=== PATIENT | female | born 1950 | race African-American/Black ===

== ENCOUNTER 2018-03-30 17:21 | Emergency (ER) | payer MEDICARE ==
[~2018-03-30] VITALS: Ht 160 cm; Wt 99.8 kg
[~2018-03-30 17:21] MED LIST: ACET-704 PO
[2018-03-30 17:30] VITALS: BP 158/76
[2018-03-30] MEDS ORDERED: oxyCODONE/APAP 5/325 1 TAB TABLET PO ONE (17:45)
--- NOTE | 2018-03-30 18:29 | PHYS DOC ---
Past Medical History Past Medical History: Arthritis, Diabetes-Type II, Hypertension, Hypothyroid Additional Past Medical Histor: chronic back pain and arthritis Past Surgical History: , Other Additional Past Surgical Histo: EAR Alcohol Use: None Drug Use: None Adult General Chief Complaint Chief Complaint: SHOULDER INJURY [facility] HPI Patient is a 67 year old female presents the ED complaining of shoulder injury times one day ago. Patient states she was trying to get healthy and she started lifting weights and injured her left shoulder. Describes the pain as sharp. Rates the pain as 6 out of 10. States she is not taking any medication at home for the pain. Denies chest pain, shortness of breath, fever, back pain, abdominal pain, nausea/vomiting, dizziness, weakness, or headache. Review of Systems Review of Systems Constitutional: Denies fever or chills [] Eyes: Denies change in visual acuity, redness, or eye pain [] HENT: Denies nasal congestion or sore throat [] Respiratory: Denies cough or shortness of breath [] Cardiovascular: No additional information not addressed in HPI [] GI: Denies abdominal pain, nausea, vomiting, bloody stools or diarrhea [] : Denies dysuria or hematuria [] Musculoskeletal: Complains of left shoulder pain. Denies back pain.[] Integument: Denies rash or skin lesions [] Neurologic: Denies headache, focal weakness or sensory changes [] All other systems were reviewed and found to be within normal limits, except as documented in this note. Current Medications Current Medications Current Medications Medications (Trade) Dose Ordered Sig/Gisela Start Time Stop Time Status Last Admin Dose Admin Oxycodone/ Acetaminophen (Percocet 5/325) 1 tab 1X ONCE 03/30/18 17:45 03/30/18 17:46 DC 03/30/18 17:56 1 TAB Allergies Allergies Allergies Coded Allergies Type Severity Reaction Last Updated Verified No Known Drug Allergies 09/21/13 No Physical Exam Physical Exam Constitutional: Well developed, well nourished, no acute distress, non-toxic appearance. [] HENT: Normocephalic, atraumatic Neck: Normal range of motion, no tenderness, supple, no stridor. [] Cardiovascular:Heart rate regular rhythm, no murmur [] Lungs & Thorax: Bilateral breath sounds clear to auscultation [] Abdomen: Bowel sounds normal, soft, no tenderness, no masses, no pulsatile masses. [] Skin: Warm, dry, no erythema, no rash. [] Back: No tenderness, no CVA tenderness. [] Extremities: mild left anterior shoulder tenderness, no cyanosis, no clubbing, ROM intact, no edema. [] Neurologic: Alert and oriented X 3, normal motor function, normal sensory function, no focal deficits noted. [] Psychologic: Affect normal, judgement normal, mood normal. [] Current Patient Data Vital Signs Vital Signs Date Time Temp Pulse Resp B/P (MAP) Pulse Ox O2 Delivery O2 Flow Rate FiO2 03/30/18 17:56 16 98 Room Air 03/30/18 17:30 98.2 92 158/76 (103) 98.2 EKG EKG [] Radiology/Procedures Radiology/Procedures [] Course & Med Decision Making Course & Med Decision Making Pertinent Labs and Imaging studies reviewed. (See chart for details) []Discussed imaging findings with patient. Patient's pain improved. Discussed symptomatic treatment outpatient. Patient requesting hydrocodone for pain. States she has taken before without complications. Discussed follow-up with orthopedics if pain persists. Provided contact information/education. Discussed reasons to return to the ED. Patient understands and agrees with plan. Dragon Disclaimer Dragon Disclaimer This electronic medical record was generated, in whole or in part, using a voice recognition dictation system. Departure Departure Impression: Primary Impression: Shoulder injury Additional Impression: Shoulder strain Disposition: 01 HOME, SELF-CARE Condition: IMPROVED Referrals: KRATHIK COATES MD (PCP) BREN HAQ MD Patient Instructions: Muscle Strain, Shoulder Sprain Scripts Hydrocodone/Apap 5-325 (NORCO 5-325 TABLET) 1 Each Tablet 1 TAB PO BID for 3 Days, #6 TAB Prov: LAKSHMI ELLIOTT 03/30/18 Problem Qualifiers LAKSHMI ELLIOTT Mar 30, 2018 18:29
[2018-03-30] MEDS ORDERED: HYDR-971 PO (18:34)
--- NOTE | 2018-03-30 21:17 | RAD ---
Three-view left shoulder radiographs March 30, 2018 CLINICAL HISTORY: Left shoulder pain. AP internal and external rotation and transscapular digital radiographs of the left shoulder were obtained. Mild to moderate degenerative changes are seen involving the left glenohumeral joint. Moderate degenerative changes are seen involving the left AC joint. No fracture or dislocation of the left shoulder is seen. IMPRESSION: Degenerative changes are seen involving the left shoulder as outlined above. No acute osseous abnormality is seen. Electronically signed by: Rebel Leyva MD (03/30/2018 9:13 PM) [facility]
== END 2018-03-30 18:38 | disposition home or self-care (01) ==
LOC: ER 17:21
DX: S46.812A Strain of other muscles, fascia and tendons at shoulder and upper arm level, left arm, initial encounter (principal); I10 Essential (primary) hypertension; E03.9 Hypothyroidism, unspecified; E11.9 Type 2 diabetes mellitus without complications; G89.29 Other chronic pain; X50.0XXA Overexertion from strenuous movement or load, initial encounter; Y93.89 Activity, other specified; Y99.8 Other external cause status; Y92.89 Other specified places as the place of occurrence of the external cause
CPT/HCPCS: 73030; 99284

== ENCOUNTER 2018-06-17 15:07 | Emergency (ER) | payer MEDICARE, MEDICAID ==
[~2018-06-17] VITALS: Ht 160 cm; Wt 99.8 kg
[~2018-06-17 15:07] MED LIST changes: +HYDR-971 PO
[2018-06-17] MEDS ORDERED: IBUPROFEN 400 MG TABLET. PO ONE (16:15)
--- NOTE | 2018-06-17 16:24 | RAD ---
Left knee, 3 views, 06/17/2018: HISTORY: Knee pain after a fall There are minimal degenerative changes medially at the knee joint and at the patellofemoral articulation. No fracture or dislocation is identified. No joint effusion is evident. IMPRESSION: No acute bony abnormality is detected. Electronically signed by: Tung Fabian MD (06/17/2018 4:21 PM) [facility]
[2018-06-17] MEDS ORDERED: HYDR-2758 PO (16:43)
--- NOTE | 2018-06-17 16:43 | PHYS DOC ---
Past Medical History Past Medical History: Arthritis, Diabetes-Type II, Hypertension, Hypothyroid Additional Past Medical Histor: chronic back pain and arthritis Past Surgical History: , Other Additional Past Surgical Histo: EAR Alcohol Use: None Drug Use: None Adult General Chief Complaint Chief Complaint: OTHER COMPLAINTS HPI HPI Patient is a 67 year old AA female who presents to the ER with complaints of sores on the insides of both of her cheeks for the last 2 days. She denies any known injury, dental pain, or fever. In addition pt reports left knee pain after a fall yesterday. Pt reports a history of arthritis and states that she had a soft fall onto her L knee yesterday. She denies any numbness or tingling of LLE, reports anterior L knee pain that increases with ROM. Pt requests that some hydrocodone be prescribed to her. Review of Systems Review of Systems Constitutional: Denies fever or chills [] Eyes: Denies change in visual acuity, redness, or eye pain [] HENT: Denies nasal congestion or sore throat, see HPI [] Respiratory: Denies cough or shortness of breath [] Musculoskeletal: Denies back pain reports L knee pain Integument: Denies rash or skin lesions [] Neurologic: Denies headache, focal weakness or sensory changes [] All other systems were reviewed and found to be within normal limits, except as documented in this note. Current Medications Current Medications Current Medications Medications (Trade) Dose Ordered Sig/Gisela Start Time Stop Time Status Last Admin Dose Admin Ibuprofen (Motrin) 400 mg 1X ONCE 06/17/18 16:15 06/17/18 16:16 DC 06/17/18 16:36 400 MG Allergies Allergies Allergies Coded Allergies Type Severity Reaction Last Updated Verified No Known Drug Allergies 09/21/13 No Physical Exam Physical Exam Constitutional: Well developed, well nourished, no acute distress, non-toxic appearance. [] HENT: Normocephalic, atraumatic, bilateral external ears normal, oropharynx moist, no oral exudates, nose normal. [] Eyes: PERRLA, EOMI, conjunctiva normal, no discharge. [] Neck: Normal range of motion, no tenderness, supple, no stridor. [] Cardiovascular:Heart rate regular rhythm, no murmur [] Lungs & Thorax: Bilateral breath sounds clear to auscultation [] Abdomen: Bowel sounds normal, soft, no tenderness, no masses, no pulsatile masses. [] Skin: Warm, dry, no erythema, no rash. [] Back: No tenderness, no CVA tenderness. [] Extremities: No tenderness, no cyanosis, no clubbing, ROM intact, no edema. [] Neurologic: Alert and oriented X 3, normal motor function, normal sensory function, no focal deficits noted. [] Psychologic: Affect normal, judgement normal, mood normal. [] Current Patient Data Vital Signs Vital Signs Date Time Temp Pulse Resp B/P (MAP) Pulse Ox O2 Delivery O2 Flow Rate FiO2 06/17/18 16:52 81 20 164/74 (104) 94 Room Air 06/17/18 15:26 98.1 98.1 EKG EKG [] Radiology/Procedures Radiology/Procedures PROCEDURE: KNEE LEFT 3V Left knee, 3 views, 06/17/2018: HISTORY: Knee pain after a fall There are minimal degenerative changes medially at the knee joint and at the patellofemoral articulation. No fracture or dislocation is identified. No joint effusion is evident. IMPRESSION: No acute bony abnormality is detected.[] Course & Med Decision Making Course & Med Decision Making Pertinent Labs and Imaging studies reviewed. (See chart for details) Dx: apthous ulcers and anterior left knee pain Prescription for hydrocodone 5/325 #4 written. Recommend rest, elevation, and application of ice to sore areas as needed. Avoid spicy, acidy, and carbonated foods/drinks as they will aggravate your ulcers. Return to the ER if symptoms worsen. Follow up with your pcp for your knee pain and your dentist if your ulcers persist. Return to ER if symptoms worsen. Patient verbalized an understanding of home care, medications, follow-up, and return to ED instructions and was in agreement with the plan of care. [] Dragon Disclaimer Dragon Disclaimer This electronic medical record was generated, in whole or in part, using a voice recognition dictation system. Departure Departure Impression: Primary Impression: Aphthous ulcer of mouth Additional Impression: Left anterior knee pain Disposition: 01 HOME, SELF-CARE Condition: STABLE Referrals: KARTHIK COATES MD (PCP) Patient Instructions: Knee Pain, [id number], Oral Ulcers Additional Instructions: Fill prescription and use as directed for severe pain. Recommend rest, elevation , and application of ice to sore areas as needed. Avoid spicy, acidy, and carbonated foods/drinks as they will aggravate your ulcers. Return to the ER if symptoms worsen. Follow up with your pcp for your knee pain and your dentist if your ulcers persist. Scripts Hydrocodone Bit/Acetaminophen (HYDROCODONE-APAP 5-325 ) 1 Each Tablet 1 TAB PO PRN Q6HRS PRN for PAIN for 1 Day, #4 TAB 0 Refills Prov: BEN RODRIGUEZ APRN 06/17/18 Problem Qualifiers BEN RODRIGUEZ APRN Jun 17, 2018 16:43
[2018-06-17 16:52] VITALS: BP 164/74
== END 2018-06-17 16:52 | disposition home or self-care (01) ==
LOC: ER 15:07
DX: K12.0 Recurrent oral aphthae (principal); M25.562 Pain in left knee; G89.11 Acute pain due to trauma; E03.9 Hypothyroidism, unspecified; I10 Essential (primary) hypertension; E11.9 Type 2 diabetes mellitus without complications; G89.29 Other chronic pain; W18.30XA Fall on same level, unspecified, initial encounter; Y93.89 Activity, other specified; Y92.89 Other specified places as the place of occurrence of the external cause; Y99.8 Other external cause status
CPT/HCPCS: 73562; 99284

== ENCOUNTER 2019-08-24 09:17 | Emergency (ER) | payer MEDICARE, MEDICAID ==
[~2019-08-24] VITALS: Ht 160 cm; Wt 99.8 kg
[~2019-08-24 09:17] MED LIST changes: +HYDR-2761 PO; +HYDR-3164 PO; -HYDR-971 PO
[2019-08-24] MEDS ORDERED: ORPHENADRINE CITRATE 60 MG/2 ML VIAL. IM ONE (10:00)
[2019-08-24] MEDS ORDERED: KETOROLAC 60 MG/2 ML VIAL. IM ONE (10:00)
[2019-08-24] MEDS ORDERED: cloNIDine HCL 0.1 MG TABLET PO ONE (10:00)
[2019-08-24 10:06] LABS: BILIRUBIN,URINE NEGATIVE (NEG); CLARITY,URINE CLEAR; COLOR,URINE YELLOW; NITRITE,URINE NEGATIVE (NEG); PH,URINE 7.5; PROTEIN,URINE NEGATIVE (NEG-TRACE)
[2019-08-24 10:27] LABS: BACTERIA,URINE 0 /HPF (0-FEW); RBC,URINE 0 /HPF (0-2); SQUAMOUS EPITHELIAL CELL,UR FEW /LPF; WBC,URINE 0 /HPF (0-4)
[2019-08-24] MEDS ORDERED: DICL50TA4 PO (10:38)
[2019-08-24] MEDS ORDERED: ORPH100T PO (10:38)
[2019-08-24] MEDS ORDERED: SULF1TAB24 PO (10:38)
--- NOTE | 2019-08-24 10:38 | PHYS DOC ---
Past Medical History Past Medical History: Arthritis, Diabetes-Type II, Hypertension, Hypothyroid Additional Past Medical Histor: chronic back pain and arthritis Past Surgical History: , Other Additional Past Surgical Histo: EAR Alcohol Use: None Drug Use: None Adult General Chief Complaint Chief Complaint: BACK PAIN - NO INJURY HPI HPI Patient is a 68-year-old female who presents with complaint of all over body pain, stating that her problems always hurt. She rates that pain at an 8 out of 10. She states that she usually just takes Tylenol or ibuprofen. She also is concerned about a possible infection in her left great toe. She denies any fever. She denies any chest pain or shortness of breath.[] Review of Systems Review of Systems Constitutional: Denies fever or chills [] Respiratory: Denies cough or shortness of breath [] Cardiovascular: No additional information not addressed in HPI [] GI: Denies abdominal pain, nausea, vomiting, or diarrhea [] Musculoskeletal: Complains of diffuse body aches and back pain [] Integument: Denies rash or skin lesions [] Neurologic: Denies headache, focal weakness or sensory changes [] All other systems were reviewed and found to be within normal limits, except as documented in this note. Current Medications Current Medications Current Medications Medications (Trade) Dose Ordered Sig/Gisela Start Time Stop Time Status Last Admin Dose Admin Clonidine HCl (Catapres) 0.2 mg 1X ONCE 08/24/19 10:00 08/24/19 10:03 DC 08/24/19 10:55 0.2 MG Ketorolac Tromethamine (Toradol Im) 30 mg 1X ONCE 08/24/19 10:00 08/24/19 10:03 DC 08/24/19 10:56 30 MG Orphenadrine Citrate (Norflex) 60 mg 1X ONCE 08/24/19 10:00 08/24/19 10:03 DC 08/24/19 10:55 60 MG Allergies Allergies Allergies Coded Allergies Type Severity Reaction Last Updated Verified No Known Drug Allergies 09/21/13 No Physical Exam Physical Exam Constitutional: Well developed, well nourished, no acute distress, non-toxic appearance. [] HENT: Normocephalic, atraumatic, bilateral external ears normal, oropharynx moist, no oral exudates, nose normal. [] Eyes: PERRLA, EOMI, conjunctiva normal, no discharge. [] Neck: Normal range of motion, no tenderness, supple, no stridor. [] Cardiovascular: Regular rate and rhythm[] Lungs & Thorax: Bilateral breath sounds clear to auscultation [] Abdomen: Bowel sounds normal, soft, no tenderness. [] Skin: Warm, dry, no erythema, no rash. [] Extremities: No cyanosis, no clubbing, ROM intact. [] Neurologic: Alert and oriented X 3, no focal deficits noted. [] Current Patient Data Vital Signs Vital Signs Date Time Temp Pulse Resp B/P (MAP) Pulse Ox O2 Delivery O2 Flow Rate FiO2 08/24/19 10:55 75 176/88 08/24/19 09:25 98.6 18 97 Room Air 98.6 Lab Values Laboratory Tests Test 08/24/19 09:30 Urine Collection Type Unknown Urine Color Yellow Urine Clarity Clear Urine pH 7.5 Urine Specific [place] 1.015 Urine Protein Negative mg/dL (NEG-TRACE) Urine Glucose (UA) >=1000 mg/dL (NEG) Urine Ketones (Stick) Negative mg/dL (NEG) Urine Blood Negative (NEG) Urine Nitrite Negative (NEG) Urine Bilirubin Negative (NEG) Urine Urobilinogen Dipstick 1.0 mg/dL (0.2 mg/dL) Urine Leukocyte Esterase Negative (NEG) Urine RBC 0 /HPF (0-2) Urine WBC 0 /HPF (0-4) Urine Squamous Epithelial Cells Few /LPF Urine Bacteria 0 /HPF (0-FEW) EKG EKG [] Radiology/Procedures Radiology/Procedures [] Course & Med Decision Making Course & Med Decision Making Pertinent Labs and Imaging studies reviewed. (See chart for details) [] Dragon Disclaimer Dragon Disclaimer This electronic medical record was generated, in whole or in part, using a voice recognition dictation system. Departure Departure Impression: Primary Impression: Chronic pain Additional Impressions: Paronychia of toe of left foot due to ingrown toenail Hypertension Disposition: 01 HOME, SELF-CARE Condition: STABLE Referrals: UNKNOWN PCP NAME (PCP) Patient Instructions: Chronic Pain, Hypertension, Paronychia Scripts Orphenadrine Citrate (ORPHENADRINE CITRATE) 100 Mg Tablet.er 1 TAB PO BID PRN for MUSCLE SPASMS, #14 TAB Prov: ML PÉREZ Jr. DO 1/2/20 Diclofenac Sodium (DICLOFENAC SODIUM) 50 Mg Tablet. 1 TAB PO BID PRN for PAIN, #20 TAB Prov: ML PÉREZ Jr. DO 08/24/19 Sulfamethoxazole/Trimethoprim (BACTRIM DS TABLET) 1 Each Tablet 1 TAB PO BID for 10 Days, #20 TAB 0 Refills Prov: ML PÉREZ Jr. DO 08/24/19 Problem Qualifiers Primary Impression: Chronic pain Chronic pain type: other chronic pain Qualified Codes: G89.29 - Other chronic pain Additional Impressions: Hypertension Hypertension type: essential hypertension Qualified Codes: I10 - Essential (primary) hypertension ML PÉREZ Jr. DO Aug 24, 2019 10:38
[2019-08-24 10:55] VITALS: BP 176/88
--- NOTE | 2019-08-24 11:35 | EKG ---
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
== END 2019-08-24 11:15 | disposition home or self-care (01) ==
LOC: ER 09:17
DX: G89.29 Other chronic pain (principal); I10 Essential (primary) hypertension; L60.0 Ingrowing nail; L03.032 Cellulitis of left toe; M54.9 Dorsalgia, unspecified; E11.9 Type 2 diabetes mellitus without complications; E03.9 Hypothyroidism, unspecified
CPT/HCPCS: 81001; 93005; 96372; 99285; J1885; J2360

== ENCOUNTER 2020-04-12 16:00 | Inpatient (IN) | payer MEDICARE, OTHER ==
[~2020-04-12] VITALS: Ht 162.6 cm; Wt 98.2 kg
[~2020-04-12 16:00] MED LIST changes: +DICL50TA4 PO; +ORPH100T PO; +SULF1TAB24 PO
--- NOTE | 2020-04-12 16:58 | PHYS DOC ---
Past Medical History Past Medical History: Arthritis, Diabetes-Type II, Hypertension, Hypothyroid Additional Past Medical Histor: chronic back pain and arthritis Past Surgical History: , Other Additional Past Surgical Histo: EAR Smoking Status: Never Smoker Alcohol Use: None Drug Use: None General Adult EDM: Chief Complaint: FEVER HPI: HPI: Patient is a 69 year old female who presents with a chief complaint of fever chills myalgias and cough for a week. Patient is also had some intermittent throbbing headache. Patient says she not having headache at this time. Patient has some mild shortness of breath as well. Patient denies any vomiting or diarrhea or abdominal pain. Symptoms are better with Tylenol and worse with activity. Patient complains of generalized weakness Review of Systems: Review of Systems: Constitutional: Complains of fever and chills Eyes: Denies change in visual acuity. [] HENT: Complains of congestion and sore throat Respiratory: Complains of cough and shortness of breath Cardiovascular: Denies chest pain or edema. [] GI: Denies abdominal pain, nausea, vomiting, bloody stools or diarrhea. [] : Denies dysuria. [] Musculoskeletal: Complains of myalgias Integument: Denies rash. [] Neurologic: Complains of intermittent headache but no, focal weakness or sensory changes. [] Complains of generalized weakness Endocrine: Denies polyuria or polydipsia. [] Lymphatic: Denies swollen glands. [] Psychiatric: Denies depression or anxiety. [] Heart Score: Risk Factors: Risk Factors: DM, Current or recent (<one month) smoker, HTN, HLP, family history of CAD, obesity. Risk Scores: Score 0 - 3: 2.5% MACE over next 6 weeks - Discharge Home Score 4 - 6: 20.3% MACE over next 6 weeks - Admit for Clinical Observation Score 7 - 10: 72.7% MACE over next 6 weeks - Early Invasive Strategies Current Medications: Current Medications Medications (Trade) Dose Ordered Sig/Gisela Start Time Stop Time Status Last Admin Dose Admin Acetaminophen (Tylenol) 1,000 mg 1X ONCE 04/12/20 17:00 04/12/20 17:01 Sodium Chloride 1,000 ml @ 1,000 mls/hr 1X ONCE 04/12/20 17:00 04/12/20 17:59 Allergies: Allergies: Allergies Coded Allergies Type Severity Reaction Last Updated Verified No Known Drug Allergies 09/21/13 No Physical Exam: PE: Constitutional: Well developed, well nourished, no acute distress, non-toxic appearance. [] HENT: Normocephalic, atraumatic, bilateral external ears normal, no trismus nose normal. [] Eyes: PERRLA, EOMI, conjunctiva normal, no discharge. [] Neck: Normal range of motion, no tenderness, supple, no stridor. [] Cardiovascular:Heart rate regular rhythm, peripheral pulses intact, cap refill brisk Lungs & Thorax: Diminished breath sounds, no respiratory distress Abdomen: soft, no tenderness, no masses, no pulsatile masses. [] Skin: Warm, dry, no erythema, no rash. [] Back: No tenderness, no CVA tenderness. [] Extremities: No tenderness, no cyanosis, no clubbing, ROM intact, no edema. [] Neurologic: Alert and oriented X 3, normal motor function, normal sensory function, no focal deficits noted. [] Psychologic: Affect normal, judgement normal, mood normal. [] Current Patient Data: Labs: Laboratory Tests Test 04/12/20 16:50 White Blood Count 6.5 x10^3/uL Red Blood Count 4.89 x10^6/uL Hemoglobin 15.1 g/dL Hematocrit 43.9 % Mean Corpuscular Volume 90 fL Mean Corpuscular Hemoglobin 31 pg Mean Corpuscular Hemoglobin Concent 34 g/dL Red Cell Distribution Width 12.8 % Platelet Count 221 x10^3/uL Neutrophils (%) (Auto) 66 % Lymphocytes (%) (Auto) 23 % Monocytes (%) (Auto) 9 % Eosinophils (%) (Auto) 0 % Basophils (%) (Auto) 2 % Neutrophils # (Auto) 4.3 x10^3/uL Lymphocytes # (Auto) 1.5 x10^3/uL Monocytes # (Auto) 0.6 x10^3/uL Eosinophils # (Auto) 0.0 x10^3/uL Basophils # (Auto) 0.1 x10^3/uL Prothrombin Time 13.3 SEC Prothromb Time International Ratio 1.1 Activated Partial Thromboplast Time 26 SEC Fibrinogen 631 mg/dL D-Dimer (Janell) 0.91 ug/mlFEU Sodium Level 133 mmol/L Potassium Level 3.3 mmol/L Chloride Level 94 mmol/L Carbon Dioxide Level 31 mmol/L Anion Gap 8 Blood Urea Nitrogen 17 mg/dL Creatinine 1.3 mg/dL Estimated GFR (Cockcroft-Gault) 48.9 BUN/Creatinine Ratio 13 Glucose Level 343 mg/dL Lactic Acid Level 1.7 mmol/L Calcium Level 8.9 mg/dL Total Bilirubin Pending Aspartate Amino Transf (AST/SGOT) Pending Alanine Aminotransferase (ALT/SGPT) Pending Alkaline Phosphatase Pending Creatine Kinase Pending Troponin I Quantitative < 0.017 ng/mL Total Protein Pending Albumin Pending Albumin/Globulin Ratio Pending Lipase Pending Current Medications Medications (Trade) Dose Ordered Sig/Gisela Route PRN Reason Start Time Stop Time Status Last Admin Dose Admin Sodium Chloride 1,000 ml @ 1,000 mls/hr 1X ONCE IV 04/12/20 17:00 04/12/20 17:59 04/12/20 17:28 Acetaminophen (Tylenol) 1,000 mg 1X ONCE PO 04/12/20 17:00 04/12/20 17:01 DC 04/12/20 17:29 Vital Signs: Vital Signs Date Time Temp Pulse Resp B/P (MAP) Pulse Ox O2 Delivery O2 Flow Rate FiO2 04/12/20 16:40 101.6 87 23 169/81 (110) 91 Room Air 101.6 EKG: EKG: [] EKG interpreted by me normal sinus rhythm with rate of 88 normal axis normal intervals nonspecific ST changes Radiology/Procedures: Radiology/Procedures: [] Course & Med Decision Making: Course & Med Decision Making Pertinent Labs and Imaging studies reviewed. (See chart for details) []COVID-19 CRITERIA: The patient was evaluated during the global COVID-19 pandemic, and that diagnosis was suspected/considered upon their initial presentation. Their evaluation, treatment and testing was consistent with current guidelines for patients who present with complaints or symptoms that may be related to COVID-19. 69-year-old female presents with fever myalgias and symptoms concerning with pneumonia and or COVID-19. Patient has elevated d-dimer therefore CT angiogram has been ordered. The remainder of the patient's labs chest x-ray and CT angiogram are pending. Care will be signed over to Dr. Aguilera to follow-up on these and for disposition. Victorino Disclaimer: Victorino Disclaimer: This electronic medical record was generated, in whole or in part, using a voice recognition dictation system. Departure Departure Impression: Primary Impression: Fever Referrals: UNKNOWN PCP NAME (PCP) Justicifation of Admission Dx: Justifications for Admission: Justification of Admission Dx: N/A COVID-19 Assessment: COVID-19 Patient Risks: Age 65 or older: Yes Sign of co-morbidity: Yes Exp to person + for COVID: No Lower respiratory symptoms: Yes Fever: Yes PPE Use: Full PPE with N95 mask or PAPR: Yes VALENTINA ROBERT MD Apr 12, 2020 16:58
[2020-04-12] MEDS ORDERED: ACETAMINOPHEN 500 MG TABLET PO ONE (17:00)
[2020-04-12] MEDS ORDERED: IV NORMAL SALINE 1000ML BAG 1,000 ML IV ONE (17:00)
[2020-04-12 17:05] LABS: BASO # 0.1 x10^3/uL (0.0-0.2); BASO % 2 % (0-3); EOS % 0 % (0-3); HEMATOCRIT 43.9 % (36.0-47.0); HEMOGLOBIN 15.1 g/dL (12.0-15.5); LYMPH # 1.5 x10^3/uL (1.0-4.8); LYMPH % 23 % (24-48); MEAN CORPUSCULAR HEMOGLOBIN 31 pg (25-35); MEAN CORPUSCULAR HGB CONC 34 g/dL (31-37); MEAN CORPUSCULAR VOLUME 90 fL (79-100); MONO # 0.6 x10^3/uL (0.0-1.1); MONO % 9 % (0-9); NEUT # 4.3 x10^3/uL (1.8-7.7); NEUT % 66 % (31-73); PLATELET COUNT 221 x10^3/uL (140-400); RED BLOOD COUNT 4.89 x10^6/uL (3.50-5.40); RED CELL DISTRIBUTION WIDTH 12.8 % (11.5-14.5); WHITE BLOOD COUNT 6.5 x10^3/uL (4.0-11.0)
[2020-04-12 17:16] LABS: PROTHROMBIN TIME PATIENT 13.3 SEC (11.7-14.0)
[2020-04-12 17:20] LABS: D-DIMER 0.91 ug/mlFEU (0.00-0.50)
[2020-04-12 17:28] LABS: CALCIUM 8.9 mg/dL (8.5-10.1); CREATININE 1.3 mg/dL (0.6-1.0); GFR 48.9; POTASSIUM 3.3 mmol/L (3.5-5.1)
[2020-04-12 17:42] LABS: ALBUMIN 2.8 g/dL (3.4-5.0); ALBUMIN/GLOBULIN RATIO 0.5 (1.0-1.7); TOTAL BILIRUBIN 0.5 mg/dL (0.2-1.0); TOTAL PROTEIN 8.4 g/dL (6.4-8.2)
[2020-04-12] MEDS ORDERED: IOHEXOL 350 MG/ML 100 ML VIAL. IV ONE (18:00)
[2020-04-12] MEDS ORDERED: CONTRAST GIVEN. MC PRN (18:15)
--- NOTE | 2020-04-12 18:57 | RAD ---
CTA scan of the Chest with Contrast (Pulmonary Embolism protocol) 04/12/2020 Clinical History: Shortness of breath. Technique: After the intravenous administration of 90 cc of Omnipaque 350, contiguous, 0.625 mm axial sections were obtained through the chest. 2 mm axial and 3D MIP coronal and sagittal reconstructed images were obtained. One or more of the following individualized dose reduction techniques were utilized for this study: 1. Automated exposure control. 2. Adjustment of the mA and/or kV according to patient size. 3. Use of iterative reconstruction technique. Findings: Comparison is made to a portable chest radiograph performed earlier today. No filling defect is seen within the major branches of either pulmonary artery. There is no CT evidence of pulmonary embolism. The heart is mildly enlarged. The thoracic aorta is tortuous but tapers normally.. Scattered atherosclerotic plaque formation is seen involving the thoracic aorta and its branches. A small calcified granuloma is seen involving the right upper lobe. Dependent subsegmental atelectasis is seen involving both lungs. Patchy areas of infiltrate are seen scattered throughout both lungs. No pneumothorax is noted. No pleural effusion is seen. Images through the upper abdomen demonstrate decreased attenuation liver parenchyma consistent with fatty infiltration. Degenerative changes are seen involving the thoracic spine. Impression: There is no CT evidence of pulmonary embolism. Electronically signed by: Rebel Leyva MD (04/12/2020 6:54 PM) [id number]
--- NOTE | 2020-04-12 18:58 | RAD ---
AP portable chest radiograph 04/12/2020 Clinical History: Fever. An AP erect portable digital radiograph of the chest was obtained. No previous studies are available for comparison. The cardiac silhouette is mildly enlarged. The thoracic aorta is tortuous. Patchy areas of atelectasis and/or infiltrate are seen involving both lower lobes, left greater than right. No pneumothorax or pleural effusion is seen. Degenerative changes are seen involving the thoracic spine and both shoulders. IMPRESSION: Patchy bilateral lower lobe atelectasis and/or infiltrate, left greater than right. Electronically signed by: Rebel Leyva MD (04/12/2020 6:55 PM) [id number]
[2020-04-12 19:18] LABS: BILIRUBIN,URINE NEGATIVE (NEG); CLARITY,URINE CLOUDY; COLOR,URINE AMBER; NITRITE,URINE POSITIVE (NEG); PROTEIN,URINE 30 mg/dL (NEG-TRACE)
[2020-04-12 19:22] LABS: BACTERIA,URINE MANY /HPF (0-FEW)
[2020-04-12 19:24] LABS: RBC,URINE 0 /HPF (0-2); SQUAMOUS EPITHELIAL CELL,UR FEW /LPF
[2020-04-12] MEDS ORDERED: ONDANSETRON PF 4 MG/2 ML VIAL. IV PRN (21:30)
[2020-04-12] MEDS ORDERED: ALBUTEROL SULFATE 2.5 MG/3 ML NEBU. NEB PRN (21:30)
[2020-04-12] MEDS ORDERED: ACETAMINOPHEN 325 MG TABLET. PO PRN (21:30)
[2020-04-12] MEDS ORDERED: ACETAMINOPHEN/CODEINE 300/30MG TABLET. PO PRN (21:30)
[2020-04-12] MEDS ORDERED: AZITHROMYCIN 250 MG TABLET. PO ONE (21:30)
[2020-04-12] MEDS ORDERED: HYDROcodone/APAP 5/325MG 1 TAB TABLET PO PRN (21:30)
[2020-04-12] MEDS ORDERED: LORazepam 0.5 MG TABLET PO PRN (21:30)
--- NOTE | 2020-04-12 21:36 | PDOC1 ---
History and Physical Date of Admission Date of Admission 04/12/2020 Identification/Chief Complaint Chief Complaint Fever Source Source: Chart review, Patient History of Present Illness History of Present Illness Patient is a 69-year-old female with past medical history of chronic pain who takes narcotics on a regular basis according to her medication patient reconcil iation, she was in her usual state of health until 2 to 3 days prior to her admission when she started having generalized malaise no cough sputum production no upper respiratory tract infection symptoms per se just a headache which was frontal she denies any recent sick contacts she had not been having fevers until today when she decided to consult the emergency department and was found to have an acute febrile illness with a temperature recorded in the ER at 101 Fahrenheit. The patient denies history of smoking she denies any history of asthma COPD or exposure to fumes or environmental hazards. The patient is now requiring 1 L of oxygen which she does not usually utilize otherwise her oxygen saturation drops into the mid 80s. We have been asked to admit the patient to complete the investigation for coronavirus infection and to treat her acute febrile illness. Patient denies pleurisy no cough or sputum production no nausea vomiting diarrhea no chest pain palpitations were reported no other complaints voiced by the patient except for her shortness of breath Past Medical History Past Medical History No pertinent past medical history Past Surgical History Past Surgical History: No pertinent history Family History Family History: No Significant Social History Smoke: No ALCOHOL: none Drugs: None Current Problem List Problem List Problems Medical Problems: (1) Fever Status: Acute Current Medications Current Medications Current Medications Medications (Trade) Dose Ordered Sig/Gisela Start Time Stop Time Status Last Admin Dose Admin Acetaminophen (Tylenol) 1,000 mg 1X ONCE 04/12/20 17:00 04/12/20 17:01 DC 04/12/20 17:29 1,000 MG Info (CONTRAST GIVEN -- Rx MONITORING) 1 each PRN DAILY PRN 04/12/20 18:15 04/14/20 18:14 Iohexol (Omnipaque 350 Mg/ml) 100 ml 1X ONCE 04/12/20 18:00 04/12/20 18:01 DC 04/12/20 18:24 100 ML Sodium Chloride 1,000 ml @ 1,000 mls/hr 1X ONCE 04/12/20 17:00 04/12/20 17:59 DC 04/12/20 17:28 1,000 MLS/HR Allergies Allergies Allergies Coded Allergies Type Severity Reaction Last Updated Verified No Known Drug Allergies 09/21/13 No ROS Review of System CONSTITUTIONAL: No fever or chills EYES: No recent changes SKIN: No rash or itching CARDIOVASCULAR: No chest pain, syncope, palpitations, or edema RESPIRATORY: No SOB or cough GASTROINTESTINAL: No nausea, vomiting or abdominal pain NEUROLOGICAL: No headaches or weakness ENDOCRINE: No cold or heat intolerance GENITOURINARY: No urgency or frequency of urination MUSCULOSKELETAL: No back pain or joint pain LYMPHATICS: No enlarged lymph nodes PSYCHIATRIC: No anxiety or depression Physical Exam Physical Exam GEN.: No apparent distress. Alert and oriented. HEENT: Head is normocephalic, atraumatic NECK: Supple. LUNGS: Clear to auscultation. HEART: RRR, S1, S2 present. Peripheral pulses intact ABDOMEN: Soft, nontender. Positive bowel sounds. EXTREMITIES: Without any cyanosis. NEUROLOGIC: Normal speech, normal tone PSYCHIATRIC: Normal affect, normal mood. SKIN: No ulcerations Vitals Vitals Vital Signs Date Time Temp Pulse Resp B/P (MAP) Pulse Ox O2 Delivery O2 Flow Rate FiO2 04/12/20 20:46 76 158/92 (114) 100 Nasal Cannula 2.0 04/12/20 16:40 101.6 23 101.6 Labs Labs Laboratory Tests Test 04/12/20 16:50 04/12/20 19:10 White Blood Count 6.5 x10^3/uL (4.0-11.0) Red Blood Count 4.89 x10^6/uL (3.50-5.40) Hemoglobin 15.1 g/dL (12.0-15.5) Hematocrit 43.9 % (36.0-47.0) Mean Corpuscular Volume 90 fL (79-100) Mean Corpuscular Hemoglobin 31 pg (25-35) Mean Corpuscular Hemoglobin Concent 34 g/dL (31-37) Red Cell Distribution Width 12.8 % (11.5-14.5) Platelet Count 221 x10^3/uL (140-400) Neutrophils (%) (Auto) 66 % (31-73) Lymphocytes (%) (Auto) 23 % (24-48) Monocytes (%) (Auto) 9 % (0-9) Eosinophils (%) (Auto) 0 % (0-3) Basophils (%) (Auto) 2 % (0-3) Neutrophils # (Auto) 4.3 x10^3/uL (1.8-7.7) Lymphocytes # (Auto) 1.5 x10^3/uL (1.0-4.8) Monocytes # (Auto) 0.6 x10^3/uL (0.0-1.1) Eosinophils # (Auto) 0.0 x10^3/uL (0.0-0.7) Basophils # (Auto) 0.1 x10^3/uL (0.0-0.2) Prothrombin Time 13.3 SEC (11.7-14.0) Prothromb Time International Ratio 1.1 (0.8-1.1) Activated Partial Thromboplast Time 26 SEC (24-38) Fibrinogen 631 mg/dL (200-440) D-Dimer (Janell) 0.91 ug/mlFEU (0.00-0.50) Sodium Level 133 mmol/L (136-145) Potassium Level 3.3 mmol/L (3.5-5.1) Chloride Level 94 mmol/L (98-107) Carbon Dioxide Level 31 mmol/L (21-32) Anion Gap 8 (6-14) Blood Urea Nitrogen 17 mg/dL (7-20) Creatinine 1.3 mg/dL (0.6-1.0) Estimated GFR (Cockcroft-Gault) 48.9 BUN/Creatinine Ratio 13 (6-20) Glucose Level 343 mg/dL (70-99) Lactic Acid Level 1.7 mmol/L (0.4-2.0) Calcium Level 8.9 mg/dL (8.5-10.1) Total Bilirubin 0.5 mg/dL (0.2-1.0) Aspartate Amino Transf (AST/SGOT) 31 U/L (15-37) Alanine Aminotransferase (ALT/SGPT) 29 U/L (14-59) Alkaline Phosphatase 107 U/L (46-116) Creatine Kinase 78 U/L (26-192) Troponin I Quantitative < 0.017 ng/mL (0.000-0.055) Total Protein 8.4 g/dL (6.4-8.2) Albumin 2.8 g/dL (3.4-5.0) Albumin/Globulin Ratio 0.5 (1.0-1.7) Lipase 178 U/L (73-393) Procalcitonin < 0.10 ng/mL (0.00-0.10) Urine Collection Type Void Urine Color Andressa Urine Clarity Cloudy Urine pH 5.0 (<5.0-8.0) Urine Specific [place] >=1.030 (1.000-1.030) Urine Protein 30 mg/dL (NEG-TRACE) Urine Glucose (UA) 500 mg/dL (NEG) Urine Ketones (Stick) Trace mg/dL (NEG) Urine Blood Negative (NEG) Urine Nitrite Positive (NEG) Urine Bilirubin Negative (NEG) Urine Urobilinogen Dipstick 1.0 mg/dL (0.2 mg/dL) Urine Leukocyte Esterase Moderate (NEG) Urine RBC 0 /HPF (0-2) Urine WBC 11-20 /HPF (0-4) Urine Squamous Epithelial Cells Few /LPF Urine Bacteria Many /HPF (0-FEW) Urine Mucus Marked /LPF Laboratory Tests Test 04/12/20 16:50 04/12/20 19:10 White Blood Count 6.5 x10^3/uL (4.0-11.0) Red Blood Count 4.89 x10^6/uL (3.50-5.40) Hemoglobin 15.1 g/dL (12.0-15.5) Hematocrit 43.9 % (36.0-47.0) Mean Corpuscular Volume 90 fL (79-100) Mean Corpuscular Hemoglobin 31 pg (25-35) Mean Corpuscular Hemoglobin Concent 34 g/dL (31-37) Red Cell Distribution Width 12.8 % (11.5-14.5) Platelet Count 221 x10^3/uL (140-400) Neutrophils (%) (Auto) 66 % (31-73) Lymphocytes (%) (Auto) 23 % (24-48) Monocytes (%) (Auto) 9 % (0-9) Eosinophils (%) (Auto) 0 % (0-3) Basophils (%) (Auto) 2 % (0-3) Neutrophils # (Auto) 4.3 x10^3/uL (1.8-7.7) Lymphocytes # (Auto) 1.5 x10^3/uL (1.0-4.8) Monocytes # (Auto) 0.6 x10^3/uL (0.0-1.1) Eosinophils # (Auto) 0.0 x10^3/uL (0.0-0.7) Basophils # (Auto) 0.1 x10^3/uL (0.0-0.2) Prothrombin Time 13.3 SEC (11.7-14.0) Prothromb Time International Ratio 1.1 (0.8-1.1) Activated Partial Thromboplast Time 26 SEC (24-38) Fibrinogen 631 mg/dL (200-440) D-Dimer (Janell) 0.91 ug/mlFEU (0.00-0.50) Sodium Level 133 mmol/L (136-145) Potassium Level 3.3 mmol/L (3.5-5.1) Chloride Level 94 mmol/L (98-107) Carbon Dioxide Level 31 mmol/L (21-32) Anion Gap 8 (6-14) Blood Urea Nitrogen 17 mg/dL (7-20) Creatinine 1.3 mg/dL (0.6-1.0) Estimated GFR (Cockcroft-Gault) 48.9 BUN/Creatinine Ratio 13 (6-20) Glucose Level 343 mg/dL (70-99) Lactic Acid Level 1.7 mmol/L (0.4-2.0) Calcium Level 8.9 mg/dL (8.5-10.1) Total Bilirubin 0.5 mg/dL (0.2-1.0) Aspartate Amino Transf (AST/SGOT) 31 U/L (15-37) Alanine Aminotransferase (ALT/SGPT) 29 U/L (14-59) Alkaline Phosphatase 107 U/L (46-116) Creatine Kinase 78 U/L (26-192) Troponin I Quantitative < 0.017 ng/mL (0.000-0.055) Total Protein 8.4 g/dL (6.4-8.2) Albumin 2.8 g/dL (3.4-5.0) Albumin/Globulin Ratio 0.5 (1.0-1.7) Lipase 178 U/L (73-393) Procalcitonin < 0.10 ng/mL (0.00-0.10) Urine Collection Type Void Urine Color Andressa Urine Clarity Cloudy Urine pH 5.0 (<5.0-8.0) Urine Specific [place] >=1.030 (1.000-1.030) Urine Protein 30 mg/dL (NEG-TRACE) Urine Glucose (UA) 500 mg/dL (NEG) Urine Ketones (Stick) Trace mg/dL (NEG) Urine Blood Negative (NEG) Urine Nitrite Positive (NEG) Urine Bilirubin Negative (NEG) Urine Urobilinogen Dipstick 1.0 mg/dL (0.2 mg/dL) Urine Leukocyte Esterase Moderate (NEG) Urine RBC 0 /HPF (0-2) Urine WBC 11-20 /HPF (0-4) Urine Squamous Epithelial Cells Few /LPF Urine Bacteria Many /HPF (0-FEW) Urine Mucus Marked /LPF VTE Prophylaxis Ordered VTE Prophylaxis Devices: No VTE Pharmacological Prophylaxi: Yes Assessment/Plan Assessment/Plan Acute febrile illness rule out COVID-19 and for Hyponatremia Hyperglycemia most likely diabetes mellitus Asymptomatic bacteriuria Obesity with a BMI of 38 Chronic pain syndrome Moderate to severe dehydration Contraction alkalosis Plan Fluid resuscitation Solu-Medrol We will start Zithromax We will follow results of urinary culture Provide supportive measures with vitamin C, D and zinc DVT prophylaxis with Lovenox Further recommendations based on the clinical course GABE ANDREA MD Apr 12, 2020 21:36
[2020-04-12] MEDS ORDERED: DEXTROSE 50% 25 GM / 50ML DISP.SYRIN. IV PRN (21:45)
[2020-04-12 23:00] VITALS: BP 152/74
[2020-04-12] MEDS: CYCLOBENZAPRINE 10 MG TABLET. PO PRN (23:40)
[2020-04-12] MEDS: FAMOTIDINE 20 MG TABLET. PO SCH (23:40)
[2020-04-12] MEDS: ZOLPIDEM 5 MG TABLET. PO PRN (23:40)
[2020-04-12] MEDS: ASCORBIC ACID 500 MG TABLET PO SCH (23:40)
[2020-04-12] MEDS: ENOXAPARIN 40 MG/0.4 ML SYRINGE. SQ SCH (23:41)
[2020-04-12] MEDS: DICLOFENAC SODIUM 25 MG TABLET.DR PO PRN (23:41)
[2020-04-12] MEDS: guaiFENesin ORAL 200 MG/10 ML LIQUID. PO PRN (23:41)
[2020-04-12] MEDS: methylPREDNISolone SOD SUCC PF 40 MG/ML VIAL. IV SCH (23:42)
[2020-04-13 03:00] VITALS: BP 132/63
[2020-04-13 03:28] LABS: BASO % 1 % (0-3); EOS % 0 % (0-3); HEMATOCRIT 43.1 % (36.0-47.0); HEMOGLOBIN 14.6 g/dL (12.0-15.5); LYMPH # 1.1 x10^3/uL (1.0-4.8); LYMPH % 15 % (24-48); MEAN CORPUSCULAR HEMOGLOBIN 31 pg (25-35); MEAN CORPUSCULAR HGB CONC 34 g/dL (31-37); MEAN CORPUSCULAR VOLUME 91 fL (79-100); MONO # 0.2 x10^3/uL (0.0-1.1); MONO % 3 % (0-9); NEUT # 5.7 x10^3/uL (1.8-7.7); NEUT % 81 % (31-73); PLATELET COUNT 225 x10^3/uL (140-400); RED BLOOD COUNT 4.74 x10^6/uL (3.50-5.40); RED CELL DISTRIBUTION WIDTH 12.9 % (11.5-14.5)
[2020-04-13 03:52] LABS: CALCIUM 8.2 mg/dL (8.5-10.1); CREATININE 1.2 mg/dL (0.6-1.0); GFR 53.6; POTASSIUM 3.7 mmol/L (3.5-5.1)
[2020-04-13 04:06] LABS: CHOLESTEROL/HDL RATIO 4.9
[2020-04-13 07:36] VITALS: BP 177/99
[2020-04-13] MEDS: INSULIN LISPRO 300 UNITS/3 ML VIAL. SQ SCH ×4 (08:00→16:57)
[2020-04-13] MEDS: ASCORBIC ACID 500 MG TABLET PO SCH ×2 (08:27→21:06)
[2020-04-13] MEDS: FAMOTIDINE 20 MG TABLET. PO SCH ×2 (08:27→21:05)
[2020-04-13] MEDS: guaiFENesin ORAL 200 MG/10 ML LIQUID. PO PRN (08:28)
[2020-04-13] MEDS: CYCLOBENZAPRINE 10 MG TABLET. PO PRN (08:28)
[2020-04-13] MEDS: DOCUSATE SODIUM 100 MG CAPSULE. PO PRN (08:28)
[2020-04-13] MEDS: ZINC SULFATE 220 MG CAPSULE. PO SCH (08:28)
[2020-04-13] MEDS: DICLOFENAC SODIUM 25 MG TABLET.DR PO PRN (08:28)
[2020-04-13] MEDS: CHOLECALCIFEROL (VITAMIN D3) 1,000 UNIT TABLET PO SCH (08:29)
[2020-04-13] MEDS: methylPREDNISolone SOD SUCC PF 40 MG/ML VIAL. IV SCH (08:29)
[2020-04-13] MEDS ORDERED: INSULIN LISPRO 300 UNITS/3 ML VIAL. SQ ONE ×3 (08:30→16:45)
[2020-04-13] MEDS: HYDROcodone/APAP 5/325MG 1 TAB TABLET PO SCH ×2 (08:33→21:06)
[2020-04-13 11:25] VITALS: BP 170/89
--- NOTE | 2020-04-13 12:35 | PDOC ---
[employer] PROGRESS NOTE Date of Service DOS: DATE: 04/13/20 TIME: 12:30 Chief Complaint Chief Complaint A/P: COVID 19 with pneumonia Acute hypoxic respiratory failure - will wean O2 as tolerated Sepsis - 2/2 COVID 19 Hyponatremia Hyperglycemia with diabetes mellitus Asymptomatic bacteriuria Obesity with a BMI of 38 Chronic pain syndrome Moderate to severe dehydration Contraction alkalosis Mild cognitive impairment - with significant memory deficits FEN - ADA diet PPX - heparin FULL CODE Dispo - inpatient at least 2 midnights History of Present Illness History of Present Illness Ms Murillo is a 69 year old female w/ PMHx Arthritis, Diabetes-Type II, Hypertension, Hypothyroid who presents with a chief complaint of fever chills myalgias and cough for a week. Patient is also had some intermittent throbbing headache. Patient says she not having headache at this time. Patient has some mild shortness of breath as well. Patient denies any vomiting or diarrhea or abdominal pain. Symptoms are better with Tylenol and worse with activity. Patient complains of generalized weakness EKG was NSR with normal axis Febrile to 101 6 F over the past 24 hours, seen on 4 L nasal cannula O2. Has a cough is nonproductive. She is confused, but notes she is aware this is and is motivated to try to help work to control her blood sugar and blood pressure more. She tells me that she has not been tested for coronavirus. In the room I have contacted her son and niece and they have told me that 04/10/2020 she was t ested positive at [facility] for COVID-19. Even after her family telling her that she is positive within 5 minutes during my examination she has forgotten with and does need to be reminded. She has no complaints of chest pain Vitals/I&O Vitals/I&O: Vital Signs Date Time Temp Pulse Resp B/P (MAP) Pulse Ox O2 Delivery O2 Flow Rate FiO2 04/13/20 11:25 98.0 79 20 170/89 (116) 96 Nasal Cannula 2.0 98.0 I & O 04/12/20 04/12/20 04/13/20 15:00 23:00 07:00 Intake Total 1000 ml 240 ml Balance 1000 ml 240 ml Physical Exam General: Alert, Cooperative, moderate distress Heart: Regular rate, Normal S1, Normal S2 Lungs: Wheezing, Crackles Abdomen: Normal bowel sounds, Soft Labs Labs: Laboratory Tests Test 04/12/20 16:50 04/12/20 19:10 04/13/20 03:00 04/13/20 08:10 White Blood Count 6.5 x10^3/uL (4.0-11.0) 7.0 x10^3/uL (4.0-11.0) Red Blood Count 4.89 x10^6/uL (3.50-5.40) 4.74 x10^6/uL (3.50-5.40) Hemoglobin 15.1 g/dL (12.0-15.5) 14.6 g/dL (12.0-15.5) Hematocrit 43.9 % (36.0-47.0) 43.1 % (36.0-47.0) Mean Corpuscular Volume 90 fL (79-100) 91 fL (79-100) Mean Corpuscular Hemoglobin 31 pg (25-35) 31 pg (25-35) Mean Corpuscular Hemoglobin Concent 34 g/dL (31-37) 34 g/dL (31-37) Red Cell Distribution Width 12.8 % (11.5-14.5) 12.9 % (11.5-14.5) Platelet Count 221 x10^3/uL (140-400) 225 x10^3/uL (140-400) Neutrophils (%) (Auto) 66 % (31-73) 81 % (31-73) Lymphocytes (%) (Auto) 23 % (24-48) 15 % (24-48) Monocytes (%) (Auto) 9 % (0-9) 3 % (0-9) Eosinophils (%) (Auto) 0 % (0-3) 0 % (0-3) Basophils (%) (Auto) 2 % (0-3) 1 % (0-3) Neutrophils # (Auto) 4.3 x10^3/uL (1.8-7.7) 5.7 x10^3/uL (1.8-7.7) Lymphocytes # (Auto) 1.5 x10^3/uL (1.0-4.8) 1.1 x10^3/uL (1.0-4.8) Monocytes # (Auto) 0.6 x10^3/uL (0.0-1.1) 0.2 x10^3/uL (0.0-1.1) Eosinophils # (Auto) 0.0 x10^3/uL (0.0-0.7) 0.0 x10^3/uL (0.0-0.7) Basophils # (Auto) 0.1 x10^3/uL (0.0-0.2) 0.0 x10^3/uL (0.0-0.2) Prothrombin Time 13.3 SEC (11.7-14.0) Prothromb Time International Ratio 1.1 (0.8-1.1) Activated Partial Thromboplast Time 26 SEC (24-38) Fibrinogen 631 mg/dL (200-440) D-Dimer (Janell) 0.91 ug/mlFEU (0.00-0.50) Sodium Level 133 mmol/L (136-145) 135 mmol/L (136-145) Potassium Level 3.3 mmol/L (3.5-5.1) 3.7 mmol/L (3.5-5.1) Chloride Level 94 mmol/L (98-107) 98 mmol/L (98-107) Carbon Dioxide Level 31 mmol/L (21-32) 30 mmol/L (21-32) Anion Gap 8 (6-14) 7 (6-14) Blood Urea Nitrogen 17 mg/dL (7-20) 16 mg/dL (7-20) Creatinine 1.3 mg/dL (0.6-1.0) 1.2 mg/dL (0.6-1.0) Estimated GFR (Cockcroft-Gault) 48.9 53.6 BUN/Creatinine Ratio 13 (6-20) Glucose Level 343 mg/dL (70-99) 422 mg/dL (70-99) Lactic Acid Level 1.7 mmol/L (0.4-2.0) Calcium Level 8.9 mg/dL (8.5-10.1) 8.2 mg/dL (8.5-10.1) Total Bilirubin 0.5 mg/dL (0.2-1.0) Aspartate Amino Transf (AST/SGOT) 31 U/L (15-37) Alanine Aminotransferase (ALT/SGPT) 29 U/L (14-59) Alkaline Phosphatase 107 U/L (46-116) Creatine Kinase 78 U/L (26-192) Troponin I Quantitative < 0.017 ng/mL (0.000-0.055) Total Protein 8.4 g/dL (6.4-8.2) Albumin 2.8 g/dL (3.4-5.0) Albumin/Globulin Ratio 0.5 (1.0-1.7) Lipase 178 U/L (73-393) Procalcitonin < 0.10 ng/mL (0.00-0.10) < 0.10 ng/mL (0.00-0.10) Urine Collection Type Void Urine Color Andressa Urine Clarity Cloudy Urine pH 5.0 (<5.0-8.0) Urine Specific [place] >=1.030 (1.000-1.030) Urine Protein 30 mg/dL (NEG-TRACE) Urine Glucose (UA) 500 mg/dL (NEG) Urine Ketones (Stick) Trace mg/dL (NEG) Urine Blood Negative (NEG) Urine Nitrite Positive (NEG) Urine Bilirubin Negative (NEG) Urine Urobilinogen Dipstick 1.0 mg/dL (0.2 mg/dL) Urine Leukocyte Esterase Moderate (NEG) Urine RBC 0 /HPF (0-2) Urine WBC 11-20 /HPF (0-4) Urine Squamous Epithelial Cells Few /LPF Urine Bacteria Many /HPF (0-FEW) Urine Mucus Marked /LPF Ferritin 624 ng/mL (8-252) Lactate Dehydrogenase 335 U/L (81-234) C-Reactive Protein, Quantitative 196.2 mg/L (0-3.3) Triglycerides Level 122 mg/dL (0-150) Cholesterol Level 147 mg/dL (0-200) LDL Cholesterol, Calculated 93 mg/dL (0-100) VLDL Cholesterol, Calculated 24 mg/dL (0-40) Non-HDL Cholesterol Calculated 117 mg/dL (0-129) HDL Cholesterol 30 mg/dL (40-60) Cholesterol/HDL Ratio 4.9 Glucose (Fingerstick) 416 mg/dL (70-99) Test 04/13/20 10:46 Glucose (Fingerstick) 532 mg/dL (70-99) Assessment and Plan Assessmemt and Plan Problems Medical Problems: (1) Fever Status: Acute Comment Review of Relevant I have reviewed the following items anjelica (where applicable) has been applied. Medications: Current Medications Medications (Trade) Dose Ordered Sig/Gisela Route PRN Reason Start Time Stop Time Status Last Admin Dose Admin Sodium Chloride 1,000 ml @ 1,000 mls/hr 1X ONCE IV 04/12/20 17:00 04/12/20 17:59 DC 04/12/20 17:28 Acetaminophen (Tylenol) 1,000 mg 1X ONCE PO 04/12/20 17:00 04/12/20 17:01 DC 04/12/20 17:29 Iohexol (Omnipaque 350 Mg/ml) 100 ml 1X ONCE IV 04/12/20 18:00 04/12/20 18:01 DC 04/12/20 18:24 Zolpidem Tartrate (Ambien) 5 mg PRN QHS PRN PO INSOMNIA 04/12/20 21:30 04/12/20 23:40 Docusate Sodium (Colace) 100 mg PRN BID PRN PO HARD STOOLS 04/12/20 21:30 04/13/20 08:28 Guaifenesin (Robitussin) 200 mg PRN Q4HRS PRN PO COUGH 04/12/20 21:30 04/13/20 08:28 Lorazepam (Ativan) 0.5 mg PRN Q4HRS PRN PO ANXIETY / AGITATION 04/12/20 21:30 04/12/20 23:40 Enoxaparin Sodium (Lovenox 40mg Syringe) 40 mg Q24H SQ 04/12/20 21:30 04/12/20 23:41 Acetaminophen/ Hydrocodone Bitart (Lortab 5/325) 1 tab BID PO 04/13/20 09:00 04/13/20 08:33 Diclofenac Sodium (Voltaren) 50 mg PRN BID PRN PO PAIN 04/12/20 21:30 04/13/20 08:28 Cyclobenzaprine HCl (Flexeril) 10 mg PRN BID PRN PO MUSCLE SPASMS 04/12/20 21:30 04/13/20 08:28 Ascorbic Acid (Vitamin C) 500 mg BID PO 04/12/20 21:30 04/13/20 08:27 Zinc Sulfate (Orazinc) 220 mg DAILY PO 04/13/20 09:00 04/13/20 08:28 Vitamin D (Vitamin D3) 1,000 unit DAILY PO 04/13/20 09:00 04/13/20 08:29 Famotidine (Pepcid) 20 mg BID PO 04/12/20 21:30 04/13/20 08:27 Azithromycin (Zithromax) 500 mg 1X ONCE PO 04/12/20 21:30 04/12/20 21:37 DC 04/12/20 23:42 Methylprednisolone Sodium Succinate (SOLU-Medrol 40MG VIAL) 40 mg DAILY IV 04/12/20 21:30 04/13/20 08:29 Insulin Human Lispro (HumaLOG) 14 units 1X ONCE SQ 04/13/20 08:30 04/13/20 08:31 DC 04/13/20 09:43 Insulin Human Lispro (HumaLOG) 22 units 1X ONCE SQ 04/13/20 11:00 04/13/20 11:01 DC 04/13/20 12:13 Justicifation of Admission Dx: Justifications for Admission: Justification of Admission Dx: N/A EBONIE COFFEY MD Apr 13, 2020 12:35
[2020-04-13] MEDS: LACTOBACILLUS RHAMNOSUS GG 1 CAPSULE. PO SCH ×2 (14:12→21:06)
[2020-04-13 15:23] VITALS: BP 137/86
--- NOTE | 2020-04-13 15:58 | EKG ---
[facility] [address] [place] [address] Test Date: 2020-04-12 Test Time: 16:53:54 Pat Name: RC QUINTERO Department: Room: Gender: F Sports Medicine Physician: : [id number] Requested By: VALENTINA ROBERT Order Number: [id number] Reading MD: Measurements Intervals [place] Rate: 88 P: 44 [place]: 152 QRS: 31 QRSD: 82 T: 16 QT: 354 QTc: 432 Interpretive Statements SINUS RHYTHM LEFT ATRIAL ABNORMALITY ABNORMAL ECG RI6.02 No previous ECG available for comparison
[2020-04-13] MEDS ORDERED: DEXTROSE 50% 25 GM / 50ML DISP.SYRIN. IV PRN (16:45)
[2020-04-13 19:15] VITALS: BP 133/65
[2020-04-13] MEDS: INSULIN GLARGINE SYRINGE. SQ SCH (21:00)
[2020-04-13] MEDS ORDERED: INSULIN GLARGINE SYRINGE. SQ SCH (21:00)
[2020-04-13] MEDS: ENOXAPARIN 40 MG/0.4 ML SYRINGE. SQ SCH (21:05)
[2020-04-13] MEDS: AZITHROMYCIN 250 MG TABLET. PO SCH (21:05)
[2020-04-13 23:00] VITALS: BP 145/81
[2020-04-14 03:15] VITALS: BP 176/87
[2020-04-14 03:58] LABS: BASO # 0.1 x10^3/uL (0.0-0.2); BASO % 1 % (0-3); EOS % 0 % (0-3); HEMATOCRIT 43.7 % (36.0-47.0); HEMOGLOBIN 14.6 g/dL (12.0-15.5); LYMPH # 1.3 x10^3/uL (1.0-4.8); LYMPH % 12 % (24-48); MEAN CORPUSCULAR HEMOGLOBIN 30 pg (25-35); MEAN CORPUSCULAR HGB CONC 33 g/dL (31-37); MEAN CORPUSCULAR VOLUME 91 fL (79-100); MONO # 0.6 x10^3/uL (0.0-1.1); MONO % 5 % (0-9); NEUT # 9.5 x10^3/uL (1.8-7.7); NEUT % 82 % (31-73); PLATELET COUNT 258 x10^3/uL (140-400); RED BLOOD COUNT 4.82 x10^6/uL (3.50-5.40); RED CELL DISTRIBUTION WIDTH 13.3 % (11.5-14.5); WHITE BLOOD COUNT 11.6 x10^3/uL (4.0-11.0)
[2020-04-14 04:21] LABS: ALBUMIN 2.5 g/dL (3.4-5.0); ALBUMIN/GLOBULIN RATIO 0.4 (1.0-1.7); CREATININE 1.6 mg/dL (0.6-1.0); GFR 38.4; POTASSIUM 3.9 mmol/L (3.5-5.1); TOTAL BILIRUBIN 0.3 mg/dL (0.2-1.0); TOTAL PROTEIN 8.3 g/dL (6.4-8.2)
[2020-04-14 05:42] LABS: HEMOGLOBIN A1C 12.5 % (4.8-5.6)
[2020-04-14 07:18] VITALS: BP 191/91
[2020-04-14] MEDS: LACTOBACILLUS RHAMNOSUS GG 1 CAPSULE. PO SCH ×2 (08:08→21:38)
[2020-04-14] MEDS: FAMOTIDINE 20 MG TABLET. PO SCH ×2 (08:08→21:35)
[2020-04-14] MEDS: methylPREDNISolone SOD SUCC PF 40 MG/ML VIAL. IV SCH (08:08)
[2020-04-14] MEDS: CHOLECALCIFEROL (VITAMIN D3) 1,000 UNIT TABLET PO SCH (08:08)
[2020-04-14] MEDS: ZINC SULFATE 220 MG CAPSULE. PO SCH (08:08)
[2020-04-14] MEDS: DOCUSATE SODIUM 100 MG CAPSULE. PO PRN (08:08)
[2020-04-14] MEDS: ASCORBIC ACID 500 MG TABLET PO SCH ×2 (08:08→21:35)
[2020-04-14] MEDS: HYDROcodone/APAP 5/325MG 1 TAB TABLET PO SCH ×2 (08:15→21:37)
[2020-04-14] MEDS: CYCLOBENZAPRINE 10 MG TABLET. PO PRN ×3 (08:39→21:37)
[2020-04-14] MEDS: INSULIN LISPRO 300 UNITS/3 ML VIAL. SQ SCH ×6 (08:42→17:07)
--- NOTE | 2020-04-14 09:00 | PDOC ---
[employer] PROGRESS NOTE Date of Service DOS: DATE: 04/14/20 TIME: 09:00 Chief Complaint Chief Complaint A/P: COVID 19 with pneumonia Acute hypoxic respiratory failure - will wean O2 as tolerated Sepsis - 2/2 COVID 19 Hyponatremia Hyperglycemia with diabetes mellitus Asymptomatic bacteriuria Obesity with a BMI of 38 Chronic pain syndrome Moderate to severe dehydration Contraction alkalosis Mild cognitive impairment - with significant memory deficits FEN - ADA diet PPX - heparin FULL CODE Dispo - inpatient at least 2 midnights History of Present Illness History of Present Illness Ms Murillo is a 69 year old female w/ PMHx Arthritis, Diabetes-Type II, Hypertension, Hypothyroid who presents with a chief complaint of fever chills myalgias and cough for a week. Patient is also had some intermittent throbbing headache. Patient says she not having headache at this time. Patient has some mild shortness of breath as well. Patient denies any vomiting or diarrhea or abdominal pain. Symptoms are better with Tylenol and worse with activity. Patient complains of generalized weakness EKG was NSR with normal axis 04/13: Febrile to 101 6 F over the past 24 hours, seen on 4 L nasal cannula O2. Has a cough is nonproductive. She is confused, but notes she is aware this is and is motivated to try to help work to control her blood sugar and blood pressure more. She tells me that she has not been tested for coronavirus. In the room I have contacted her son and niece and they have told me that 04/10/2020 she was tested positive at [facility] for COVID-19. Even after her family telling her that she is positive within 5 minutes during my examination she has forgotten with and does need to be reminded. She has no complaints of chest pain Afebrile, on 3L NCO2. Blood glucose still elevated. No CP. Short of breath, cough, sore throat today. Vitals/I&O Vitals/I&O: Vital Signs Date Time Temp Pulse Resp B/P (MAP) Pulse Ox O2 Delivery O2 Flow Rate FiO2 04/14/20 08:15 95 Nasal Cannula 3.0 04/14/20 07:18 97.1 85 18 191/91 (124) 97.1 I & O 04/13/20 04/13/20 04/14/20 15:00 23:00 07:00 Intake Total 480 ml 1320 ml Output Total 590 ml 700 ml Balance -110 ml 620 ml Physical Exam General: Alert, Cooperative, moderate distress Heart: Regular rate, Normal S1, Normal S2 Lungs: Wheezing, Crackles Abdomen: Normal bowel sounds, Soft Labs Labs: Laboratory Tests Test 04/13/20 10:46 04/13/20 16:30 04/13/20 22:00 04/14/20 03:50 Glucose (Fingerstick) 532 mg/dL (70-99) 557 mg/dL (70-99) 467 mg/dL (70-99) White Blood Count 11.6 x10^3/uL (4.0-11.0) Red Blood Count 4.82 x10^6/uL (3.50-5.40) Hemoglobin 14.6 g/dL (12.0-15.5) Hematocrit 43.7 % (36.0-47.0) Mean Corpuscular Volume 91 fL (79-100) Mean Corpuscular Hemoglobin 30 pg (25-35) Mean Corpuscular Hemoglobin Concent 33 g/dL (31-37) Red Cell Distribution Width 13.3 % (11.5-14.5) Platelet Count 258 x10^3/uL (140-400) Neutrophils (%) (Auto) 82 % (31-73) Lymphocytes (%) (Auto) 12 % (24-48) Monocytes (%) (Auto) 5 % (0-9) Eosinophils (%) (Auto) 0 % (0-3) Basophils (%) (Auto) 1 % (0-3) Neutrophils # (Auto) 9.5 x10^3/uL (1.8-7.7) Lymphocytes # (Auto) 1.3 x10^3/uL (1.0-4.8) Monocytes # (Auto) 0.6 x10^3/uL (0.0-1.1) Eosinophils # (Auto) 0.0 x10^3/uL (0.0-0.7) Basophils # (Auto) 0.1 x10^3/uL (0.0-0.2) Sodium Level 133 mmol/L (136-145) Potassium Level 3.9 mmol/L (3.5-5.1) Chloride Level 94 mmol/L (98-107) Carbon Dioxide Level 30 mmol/L (21-32) Anion Gap 9 (6-14) Blood Urea Nitrogen 26 mg/dL (7-20) Creatinine 1.6 mg/dL (0.6-1.0) Estimated GFR (Cockcroft-Gault) 38.4 BUN/Creatinine Ratio 16 (6-20) Glucose Level 457 mg/dL (70-99) Calcium Level 9.0 mg/dL (8.5-10.1) Total Bilirubin 0.3 mg/dL (0.2-1.0) Aspartate Amino Transf (AST/SGOT) 24 U/L (15-37) Alanine Aminotransferase (ALT/SGPT) 22 U/L (14-59) Alkaline Phosphatase 107 U/L (46-116) Total Protein 8.3 g/dL (6.4-8.2) Albumin 2.5 g/dL (3.4-5.0) Albumin/Globulin Ratio 0.4 (1.0-1.7) Test 04/14/20 08:00 Glucose (Fingerstick) 358 mg/dL (70-99) Assessment and Plan Assessmemt and Plan Problems Medical Problems: (1) Fever Status: Acute Comment Review of Relevant I have reviewed the following items anjelica (where applicable) has been applied. Medications: Current Medications Medications (Trade) Dose Ordered Sig/Gisela Route PRN Reason Start Time Stop Time Status Last Admin Dose Admin Azithromycin (Zithromax) 250 mg HS PO 04/13/20 21:00 04/16/20 21:01 04/13/20 21:05 Insulin Human Lispro (HumaLOG) 22 units 1X ONCE SQ 04/13/20 11:00 04/13/20 11:01 DC 04/13/20 12:13 Lactobacillus Rhamnosus (Culturelle) 1 cap BID PO 04/13/20 13:00 04/14/20 08:08 Insulin Glargine (Lantus Syringe) 35 unit QHS SQ 04/13/20 21:00 04/13/20 21:00 Insulin Human Lispro (HumaLOG) 15 units TIDAC SQ 04/14/20 07:30 04/14/20 08:42 Insulin Human Lispro (HumaLOG) 0-9 UNITS TIDWMEALS SQ 04/13/20 17:00 04/14/20 08:42 Insulin Human Lispro (HumaLOG) 32 units 1X ONCE SQ 04/13/20 16:45 04/13/20 17:01 DC 04/13/20 16:57 Justicifation of Admission Dx: Justifications for Admission: Justification of Admission Dx: N/A EBONIE COFFEY MD Apr 14, 2020 09:00
[2020-04-14 11:21] VITALS: BP 175/62
[2020-04-14 15:15] VITALS: BP 136/62
[2020-04-14] MEDS ORDERED: BENZOCAINE 10% ORAL GEL 7GM TUBE. TP PRN (16:45)
[2020-04-14] MEDS: guaiFENesin ORAL 200 MG/10 ML LIQUID. PO PRN ×2 (16:56→21:37)
[2020-04-14 19:05] VITALS: BP 132/63
[2020-04-14] MEDS: BENZOCAINE/MENTHOL LOZENGE. PO PRN (21:34)
[2020-04-14] MEDS: AZITHROMYCIN 250 MG TABLET. PO SCH (21:35)
[2020-04-14] MEDS: ZOLPIDEM 5 MG TABLET. PO PRN ×2 (21:37)
[2020-04-14] MEDS: ENOXAPARIN 40 MG/0.4 ML SYRINGE. SQ SCH (21:40)
[2020-04-14] MEDS: INSULIN GLARGINE SYRINGE. SQ SCH (21:56)
[2020-04-14 23:25] VITALS: BP 173/86
[2020-04-15 03:10] VITALS: BP 176/89
[2020-04-15 07:19] VITALS: BP 163/91
[2020-04-15 08:51] LABS: ALBUMIN 2.5 g/dL (3.4-5.0); ALBUMIN/GLOBULIN RATIO 0.5 (1.0-1.7); CALCIUM 8.8 mg/dL (8.5-10.1); GFR 66.1; POTASSIUM 3.6 mmol/L (3.5-5.1); TOTAL BILIRUBIN 0.3 mg/dL (0.2-1.0); TOTAL PROTEIN 7.4 g/dL (6.4-8.2)
[2020-04-15] MEDS: CHOLECALCIFEROL (VITAMIN D3) 1,000 UNIT TABLET PO SCH (09:52)
[2020-04-15] MEDS: ZINC SULFATE 220 MG CAPSULE. PO SCH (09:52)
[2020-04-15] MEDS: LACTOBACILLUS RHAMNOSUS GG 1 CAPSULE. PO SCH ×2 (09:53→21:06)
[2020-04-15] MEDS: methylPREDNISolone SOD SUCC PF 40 MG/ML VIAL. IV SCH (09:53)
[2020-04-15] MEDS: HYDROcodone/APAP 5/325MG 1 TAB TABLET PO SCH ×2 (09:53→21:06)
[2020-04-15] MEDS: ASCORBIC ACID 500 MG TABLET PO SCH ×2 (09:53→21:06)
[2020-04-15] MEDS: FAMOTIDINE 20 MG TABLET. PO SCH ×2 (09:53→21:06)
[2020-04-15] MEDS: INSULIN LISPRO 300 UNITS/3 ML VIAL. SQ SCH ×6 (09:55→18:22)
[2020-04-15 11:30] VITALS: BP 191/92
[2020-04-15] MEDS: BENZOCAINE/MENTHOL LOZENGE. PO PRN (12:29)
[2020-04-15] MEDS: DOCUSATE SODIUM 100 MG CAPSULE. PO PRN (12:47)
--- NOTE | 2020-04-15 14:52 | PDOC ---
[facility] PROGRESS NOTE Date of Service DOS: DATE: 04/15/20 TIME: 14:50 Chief Complaint Chief Complaint A/P: COVID 19 with pneumonia Acute hypoxic respiratory failure - will wean O2 as tolerated Sepsis - 2/2 COVID 19 Hyponatremia Hyperglycemia with diabetes mellitus Asymptomatic bacteriuria Obesity with a BMI of 38 Chronic pain syndrome Moderate to severe dehydration Contraction alkalosis Mild cognitive impairment - with significant memory deficits Oral pharyngeal irritationpending speech evaluation FEN - ADA diet PPX - heparin FULL CODE Dispo -continue with O2 therapy and other History of Present Illness History of Present Illness Ms Murillo is a 69 year old female w/ PMHx Arthritis, Diabetes-Type II, Hypertension, Hypothyroid who presents with a chief complaint of fever chills myalgias and cough for a week. Patient is also had some intermittent throbbing headache. Patient says she not having headache at this time. Patient has some mild shortness of breath as well. Patient denies any vomiting or diarrhea or abdominal pain. Symptoms are better with Tylenol and worse with activity. Patient complains of generalized weakness EKG was NSR with normal axis 04/13: Febrile to 101 6 F over the past 24 hours, seen on 4 L nasal cannula O2. Has a cough is nonproductive. She is confused, but notes she is aware this is and is motivated to try to help work to control her blood sugar and blood pressure more. She tells me that she has not been tested for coronavirus. In the room I have contacted her son and niece and they have told me that 04/10/2020 she was tested positive at [facility] for COVID-19. Even after her family telling her that she is positive within 5 minutes during my examination she has forgotten with and does need to be reminded. She has no complaints of chest pain 04/14 Afebrile, on 3L NCO2. Blood glucose still elevated. No CP. Short of breath, cough, sore throat today. 04/15/2020 No acute events overnight. Patient is tolerating diet and complains of sore throat. Saturating 92% on 3 L nasal cannula. Currently on azithromycin and Solu-Medrol. Vitals/I&O Vitals/I&O: Vital Signs Date Time Temp Pulse Resp B/P (MAP) Pulse Ox O2 Delivery O2 Flow Rate FiO2 04/15/20 11:30 98.0 95 20 191/92 (125) 93 Nasal Cannula 3.5 98.0 I & O 04/14/20 04/14/20 04/15/20 15:00 23:00 07:00 Intake Total 450 ml 0 ml 300 ml Output Total 250 ml Balance 200 ml 0 ml 300 ml Physical Exam Physical Exam: General: Alert, Cooperative, moderate distress Heart: Regular rate, Normal S1, Normal S2 Lungs: Wheezing, Crackles Abdomen: Normal bowel sounds, Soft General: Alert, Cooperative, moderate distress Heart: Regular rate, Normal S1, Normal S2 Lungs: Wheezing, Crackles Abdomen: Normal bowel sounds, Soft Labs Labs: Laboratory Tests Test 04/14/20 16:26 04/14/20 21:15 04/15/20 06:28 04/15/20 07:37 Glucose (Fingerstick) 228 mg/dL (70-99) 197 mg/dL (70-99) 214 mg/dL (70-99) Sodium Level 139 mmol/L (136-145) Potassium Level 3.6 mmol/L (3.5-5.1) Chloride Level 99 mmol/L (98-107) Carbon Dioxide Level 31 mmol/L (21-32) Anion Gap 9 (6-14) Blood Urea Nitrogen 14 mg/dL (7-20) Creatinine 1.0 mg/dL (0.6-1.0) Estimated GFR (Cockcroft-Gault) 66.1 BUN/Creatinine Ratio 14 (6-20) Glucose Level 196 mg/dL (70-99) Calcium Level 8.8 mg/dL (8.5-10.1) Total Bilirubin 0.3 mg/dL (0.2-1.0) Aspartate Amino Transf (AST/SGOT) 25 U/L (15-37) Alanine Aminotransferase (ALT/SGPT) 21 U/L (14-59) Alkaline Phosphatase 98 U/L (46-116) Total Protein 7.4 g/dL (6.4-8.2) Albumin 2.5 g/dL (3.4-5.0) Albumin/Globulin Ratio 0.5 (1.0-1.7) Test 04/15/20 10:23 Glucose (Fingerstick) 350 mg/dL (70-99) Assessment and Plan Assessmemt and Plan Problems Medical Problems: (1) Fever Status: Acute Comment Review of Relevant I have reviewed the following items anjelica (where applicable) has been applied. Medications: Current Medications Medications (Trade) Dose Ordered Sig/Gisela Route PRN Reason Start Time Stop Time Status Last Admin Dose Admin Throat Lozenges (Cepacol Sore Throat Lozenge) 1 ginger PRN Q2HRS PRN PO SORE THROAT 04/14/20 16:45 04/15/20 12:29 ZEN GREENE MD Apr 15, 2020 14:52
[2020-04-15 15:10] VITALS: BP 170/71
--- NOTE | 2020-04-15 17:55 | NUR ---
SW following. Spoke with RN and reviewed chart. Pt COVID positive. Pt on 3.5l. SW following.
[2020-04-15 19:45] VITALS: BP 217/108
[2020-04-15] MEDS: LABETALOL 20 MG/4 ML DISP.SYRIN. IVP PRN (21:02)
[2020-04-15] MEDS: AZITHROMYCIN 250 MG TABLET. PO SCH (21:06)
[2020-04-15] MEDS: ENOXAPARIN 40 MG/0.4 ML SYRINGE. SQ SCH (21:07)
[2020-04-15] MEDS: INSULIN GLARGINE SYRINGE. SQ SCH (21:07)
[2020-04-15 23:25] VITALS: BP 191/101
[2020-04-16] VITALS (7 sets, daily range): BP systolic 173–205; BP diastolic 69–103
[2020-04-16] MEDS: LABETALOL 20 MG/4 ML DISP.SYRIN. IVP PRN ×4 (04:09→19:03)
[2020-04-16] MEDS: LACTOBACILLUS RHAMNOSUS GG 1 CAPSULE. PO SCH ×2 (08:21→22:06)
[2020-04-16] MEDS: FAMOTIDINE 20 MG TABLET. PO SCH ×2 (08:21→21:59)
[2020-04-16] MEDS: ZINC SULFATE 220 MG CAPSULE. PO SCH (08:21)
[2020-04-16] MEDS: DOCUSATE SODIUM 100 MG CAPSULE. PO PRN (08:21)
[2020-04-16] MEDS: CHOLECALCIFEROL (VITAMIN D3) 1,000 UNIT TABLET PO SCH (08:21)
[2020-04-16] MEDS: ASCORBIC ACID 500 MG TABLET PO SCH ×2 (08:22→22:03)
[2020-04-16] MEDS: methylPREDNISolone SOD SUCC PF 40 MG/ML VIAL. IV SCH (08:22)
[2020-04-16] MEDS: HYDROcodone/APAP 5/325MG 1 TAB TABLET PO SCH ×2 (08:22→22:03)
[2020-04-16] MEDS: INSULIN LISPRO 300 UNITS/3 ML VIAL. SQ SCH ×6 (08:26→17:25)
[2020-04-16 10:05] LABS: CALCIUM 8.6 mg/dL (8.5-10.1); CREATININE 0.9 mg/dL (0.6-1.0); GFR 74.7; POTASSIUM 3.4 mmol/L (3.5-5.1)
[2020-04-16 10:12] LABS: BASO # 0.1 x10^3/uL (0.0-0.2); BASO % 1 % (0-3); EOS % 0 % (0-3); HEMATOCRIT 41.8 % (36.0-47.0); HEMOGLOBIN 13.9 g/dL (12.0-15.5); LYMPH # 2.1 x10^3/uL (1.0-4.8); LYMPH % 19 % (24-48); MEAN CORPUSCULAR HEMOGLOBIN 30 pg (25-35); MEAN CORPUSCULAR HGB CONC 33 g/dL (31-37); MEAN CORPUSCULAR VOLUME 91 fL (79-100); MONO # 0.7 x10^3/uL (0.0-1.1); MONO % 7 % (0-9); NEUT # 8.2 x10^3/uL (1.8-7.7); NEUT % 74 % (31-73); PLATELET COUNT 291 x10^3/uL (140-400); RED BLOOD COUNT 4.61 x10^6/uL (3.50-5.40); RED CELL DISTRIBUTION WIDTH 13.1 % (11.5-14.5); WHITE BLOOD COUNT 11.2 x10^3/uL (4.0-11.0)
--- NOTE | 2020-04-16 10:15 | NUR ---
SW following. Spoke with RN and reviewed chart. Spoke with pt by phone. Pt stated she lives with her son and stated no concerns with returning home when stable. Pt is not ready for discharge today. Pt COVID positive. Pt on 3l and does not have home 02. SW following.
[2020-04-16] MEDS ORDERED: PHENOL ORAL SPRAY 177ML BOTTLE. PO PRN (10:45)
[2020-04-16] MEDS ORDERED: POTASSIUM CHLORIDE 20 MEQ TABLET.ER. PO ONE (10:45)
--- NOTE | 2020-04-16 14:52 | PDOC ---
[facility] PROGRESS NOTE Date of Service DOS: DATE: 04/16/20 TIME: 14:51 Chief Complaint Chief Complaint A/P: COVID 19 with pneumonia Acute hypoxic respiratory failure - will wean O2 as tolerated pending 6-minute walk test for possible home O2 Sepsis - 2/2 COVID 19 Hyponatremia Hyperglycemia with diabetes mellitus Asymptomatic bacteriuria Obesity with a BMI of 38 Chronic pain syndrome Moderate to severe dehydration Contraction alkalosis Mild cognitive impairment - with significant memory deficits Oral pharyngeal irritationpending speech evaluation FEN - ADA diet PPX - heparin FULL CODE Dispo -continue with O2 therapy and other History of Present Illness History of Present Illness Ms Murillo is a 69 year old female w/ PMHx Arthritis, Diabetes-Type II, Hypertension, Hypothyroid who presents with a chief complaint of fever chills myalgias and cough for a week. Patient is also had some intermittent throbbing headache. Patient says she not having headache at this time. Patient has some mild shortness of breath as well. Patient denies any vomiting or diarrhea or abdominal pain. Symptoms are better with Tylenol and worse with activity. Patient complains of generalized weakness EKG was NSR with normal axis 04/13: Febrile to 101 6 F over the past 24 hours, seen on 4 L nasal cannula O2. Has a cough is nonproductive. She is confused, but notes she is aware this is and is motivated to try to help work to control her blood sugar and blood pressure more. She tells me that she has not been tested for coronavirus. In the room I have contacted her son and niece and they have told me that 04/10/2020 she was tested positive at [facility] for COVID-19. Even after her family telling her that she is positive within 5 minutes during my examination she has forgotten with and does need to be reminded. She has no complaints of chest pain 04/14 Afebrile, on 3L NCO2. Blood glucose still elevated. No CP. Short of breath, cough, sore throat today. 04/15/2020 No acute events overnight. Patient is tolerating diet and complains of sore throat. Saturating 92% on 3 L nasal cannula. Currently on azithromycin and Solu-Medrol 04/16/2020 No acute events overnight. Patient seen and examined bedside. Elevated blood pressures in the 200s systolics. IV labetalol as ordered. Patient's chart, labs, images were reviewed and discussed with RN. Vitals/I&O Vitals/I&O: Vital Signs Date Time Temp Pulse Resp B/P (MAP) Pulse Ox O2 Delivery O2 Flow Rate FiO2 04/16/20 11:12 97.5 76 27 173/69 (103) 94 Nasal Cannula 3.0 97.5 I & O 04/15/20 04/15/20 04/16/20 15:00 23:00 07:00 Intake Total 580 ml 300 ml 160 ml Output Total 350 ml 250 ml 1100 ml Balance 230 ml 50 ml -940 ml Physical Exam Physical Exam: General: Alert, Cooperative, moderate distress Heart: Regular rate, Normal S1, Normal S2 Lungs: Wheezing, Crackles Abdomen: Normal bowel sounds, Soft General: Alert, Cooperative, moderate distress Heart: Regular rate, Normal S1, Normal S2 Lungs: Wheezing, Crackles Abdomen: Normal bowel sounds, Soft Labs Labs: Laboratory Tests Test 04/15/20 16:07 04/15/20 21:06 04/16/20 07:18 04/16/20 09:40 Glucose (Fingerstick) 333 mg/dL (70-99) 267 mg/dL (70-99) 163 mg/dL (70-99) White Blood Count 11.2 x10^3/uL (4.0-11.0) Red Blood Count 4.61 x10^6/uL (3.50-5.40) Hemoglobin 13.9 g/dL (12.0-15.5) Hematocrit 41.8 % (36.0-47.0) Mean Corpuscular Volume 91 fL (79-100) Mean Corpuscular Hemoglobin 30 pg (25-35) Mean Corpuscular Hemoglobin Concent 33 g/dL (31-37) Red Cell Distribution Width 13.1 % (11.5-14.5) Platelet Count 291 x10^3/uL (140-400) Neutrophils (%) (Auto) 74 % (31-73) Lymphocytes (%) (Auto) 19 % (24-48) Monocytes (%) (Auto) 7 % (0-9) Eosinophils (%) (Auto) 0 % (0-3) Basophils (%) (Auto) 1 % (0-3) Neutrophils # (Auto) 8.2 x10^3/uL (1.8-7.7) Lymphocytes # (Auto) 2.1 x10^3/uL (1.0-4.8) Monocytes # (Auto) 0.7 x10^3/uL (0.0-1.1) Eosinophils # (Auto) 0.0 x10^3/uL (0.0-0.7) Basophils # (Auto) 0.1 x10^3/uL (0.0-0.2) Sodium Level 137 mmol/L (136-145) Potassium Level 3.4 mmol/L (3.5-5.1) Chloride Level 99 mmol/L (98-107) Carbon Dioxide Level 30 mmol/L (21-32) Anion Gap 8 (6-14) Blood Urea Nitrogen 11 mg/dL (7-20) Creatinine 0.9 mg/dL (0.6-1.0) Estimated GFR (Cockcroft-Gault) 74.7 Glucose Level 257 mg/dL (70-99) Calcium Level 8.6 mg/dL (8.5-10.1) Test 04/16/20 11:03 Glucose (Fingerstick) 281 mg/dL (70-99) Assessment and Plan Assessmemt and Plan Problems Medical Problems: (1) Fever Status: Acute Comment Review of Relevant I have reviewed the following items anjelica (where applicable) has been applied. Medications: Current Medications Medications (Trade) Dose Ordered Sig/Gisela Route PRN Reason Start Time Stop Time Status Last Admin Dose Admin Labetalol HCl (Normodyne Iv Push) 10 mg PRN Q2HRS PRN IVP HYPERTENSION 04/15/20 20:45 04/16/20 07:41 Potassium Chloride (Klor-Con) 40 meq 1X ONCE PO 04/16/20 10:45 04/16/20 10:46 DC 04/16/20 11:44 ZEN GREENE MD Apr 16, 2020 14:52
[2020-04-16] MEDS ORDERED: CARV6.2511 PO (16:32)
[2020-04-16] MEDS ORDERED: AMLO10TA4 PO (16:32)
[2020-04-16] MEDS: AZITHROMYCIN 250 MG TABLET. PO SCH (22:03)
[2020-04-16] MEDS: ENOXAPARIN 40 MG/0.4 ML SYRINGE. SQ SCH (22:04)
[2020-04-16] MEDS: INSULIN GLARGINE SYRINGE. SQ SCH (22:07)
[2020-04-17] MEDS: LABETALOL 20 MG/4 ML DISP.SYRIN. IVP PRN ×3 (03:01→15:26)
[2020-04-17 03:34] VITALS: BP 188/87
[2020-04-17 04:13] LABS: BASO # 0.2 x10^3/uL (0.0-0.2); BASO % 1 % (0-3); EOS # 0.1 x10^3/uL (0.0-0.7); EOS % 1 % (0-3); HEMATOCRIT 40.4 % (36.0-47.0); HEMOGLOBIN 13.7 g/dL (12.0-15.5); LYMPH # 2.4 x10^3/uL (1.0-4.8); LYMPH % 18 % (24-48); MEAN CORPUSCULAR HEMOGLOBIN 30 pg (25-35); MEAN CORPUSCULAR HGB CONC 34 g/dL (31-37); MEAN CORPUSCULAR VOLUME 90 fL (79-100); MONO % 7 % (0-9); NEUT # 9.8 x10^3/uL (1.8-7.7); NEUT % 73 % (31-73); PLATELET COUNT 330 x10^3/uL (140-400); RED CELL DISTRIBUTION WIDTH 12.9 % (11.5-14.5); WHITE BLOOD COUNT 13.5 x10^3/uL (4.0-11.0)
[2020-04-17 04:31] LABS: CALCIUM 8.7 mg/dL (8.5-10.1); GFR 66.1; PHOSPHORUS 4.2 mg/dL (2.6-4.7)
[2020-04-17 07:00] VITALS: BP 177/79
[2020-04-17] MEDS: INSULIN LISPRO 300 UNITS/3 ML VIAL. SQ SCH ×4 (07:33→11:48)
[2020-04-17] MEDS: HYDROcodone/APAP 5/325MG 1 TAB TABLET PO SCH (08:37)
[2020-04-17] MEDS: ASCORBIC ACID 500 MG TABLET PO SCH (08:37)
[2020-04-17] MEDS: FAMOTIDINE 20 MG TABLET. PO SCH (08:37)
[2020-04-17] MEDS: LACTOBACILLUS RHAMNOSUS GG 1 CAPSULE. PO SCH (08:37)
[2020-04-17] MEDS: ZINC SULFATE 220 MG CAPSULE. PO SCH (08:37)
[2020-04-17] MEDS: CHOLECALCIFEROL (VITAMIN D3) 1,000 UNIT TABLET PO SCH (08:37)
[2020-04-17] MEDS: methylPREDNISolone SOD SUCC PF 40 MG/ML VIAL. IV SCH (08:37)
[2020-04-17 11:00] VITALS: BP 192/90
[2020-04-17] MEDS ORDERED: amLODIPine BESYLATE 10 MG TABLET PO SCH (11:00)
--- NOTE | 2020-04-17 11:03 | DISCH ---
DISCHARGE INSTRUCTIONS Condition on Discharge Condition on Discharge: Stable (Quarantine if he can he want a fine skilled for him that is fine to get acute right okay "for at least 2 weeks) Activity After Discharge Activity Instructions for Disc: Activity as tolerated Exercise Instruction after Dis: Walk 15 min, 3 x per day Driving Instructions after Dis: Do not drive Weight Bearing Status after Di: As tolerated Diet after Discharge Diet after Discharge: Cardiac Community/Resources/Services Services at Discharge: Oxygen Therapy Contacting the [facility] after DC Call your doctor for: If your condition worsens Follow-Up Follow up with: PCP within 1 week of discharge Treatment/Equipment after DC Discharge Respiratory Equipmen: Oxygen ZEN GREENE MD Apr 17, 2020 11:03
[2020-04-17] MEDS ORDERED: CARVEDILOL 6.25 MG TABLET. PO SCH (12:00)
--- NOTE | 2020-04-17 13:31 | NUR ---
SW following. Spoke with RN and reviewed chart. Pt to discharge home today self-care to quarantine per being COVID positive. 6 min walk completed and pt requires 02 at discharge. SW obtained script and phoned and faxed clinicals to [facility] per approval from pt. Patient Choice of Vendor form complete. SW confirmed pt's address and phone number on the facesheet. Spoke with Mira from [facility] [employer] who authorized release of 02 tank. Pt to discharge home today with 02 tank and will call [facility] (number on the tank) upon arrival to coordinate home 02 setup. No further SW needs at this time.
[2020-04-17 15:00] VITALS: BP 182/86
[2020-04-17 15:26] VITALS: BP 177/79
--- NOTE | 2020-04-17 15:46 | PDOC3 ---
[facility]-Discharge Summary Date of Admission: Date of Admission: Apr 12, 2020 Date of Discharge: Date of Discharge: Apr 17, 2020 Admission Diagnosis: Admitting Diagnosis: Acute febrile illness rule out COVID-19 and for Hyponatremia Hyperglycemia most likely diabetes mellitus Asymptomatic bacteriuria Obesity with a BMI of 38 Chronic pain syndrome Moderate to severe dehydration Contraction alkalosis Discharge Diagnosis: Discharge Diagnosis: COVID 19 with pneumonia Acute hypoxic respiratory failure Sepsis - 2/2 COVID 19 Hyponatremia Hyperglycemia with diabetes mellitus Asymptomatic bacteriuria Obesity with a BMI of 38 Chronic pain syndrome Moderate to severe dehydration Contraction alkalosis Mild cognitive impairment Oral pharyngeal irritation Hospital Course: Hospital Course: 69-year-old female with past medical history of chronic pain who takes narcotics on a regular basis according to her medication patient reconciliation, she was in her usual state of health until 2 to 3 days prior to her admission when she started having generalized malaise no cough sputum production no upper resp iratory tract infection symptoms per se just a headache which was frontal she denies any recent sick contacts she had not been having fevers until today when she decided to consult the emergency department and was found to have an acute febrile illness with a temperature recorded in the ER at 101 Fahrenheit. The patient denies history of smoking she denies any history of asthma COPD or exposure to fumes or environmental hazards. The patient is now requiring 1 L of oxygen which she does not usually utilize otherwise her oxygen saturation drops into the mid 80s. We have been asked to admit the patient to complete the investigation for coronavirus infection and to treat her acute febrile illness. Patient denies pleurisy no cough or sputum production no nausea vomiting diarrhea no chest pain palpitations were reported no other complaints voiced by the patient except for her shortness of breath Patient was admitted for further care managing her shortness of breath with O2 supplementation and IV steroids. During her hospital stay patient's oxygenation improved and eventually required only 3 L nasal cannula and was saturating at 97%. A 6-minute walk test was completed on day before discharge and it was necessary for her to stay on 4 L O2 at rest and exertion. It was instructed for the patient to remain quarantined for at least 2 weeks after day of discharge. The rest of the hospital course was uneventful Disposition: Disposition/Orders: D/C to Home Activity: Activity: Resume previous activity Diet: Diet: Regular Medications: Home Meds Reported Medications Carvedilol (CARVEDILOL ) 6.25 Mg Tablet, 6.25 MG PO BIDWMEALS for CARDIAC, TAB 04/16/20 Amlodipine Besylate (NORVASC) 10 Mg Tablet, 10 MG PO DAILY for , TAB 04/16/20 Discontinued Reported Medications Acetaminophen With Codeine (TYLENOL WITH CODEINE #3 TABLET) 1 Each Tablet, 1 EACH PO 09/21/13 Discontinued Scripts Orphenadrine Citrate (ORPHENADRINE CITRATE) 100 Mg Tablet.er, 1 TAB PO BID PRN for MUSCLE SPASMS, #14 TAB Prov:ML PÉREZ Jr. DO 08/24/19 Diclofenac Sodium (DICLOFENAC SODIUM) 50 Mg Tablet.dr, 1 TAB PO BID PRN for PAIN, #20 TAB Prov:ML PÉREZ Jr. DO 08/24/19 Sulfamethoxazole/Trimethoprim (BACTRIM DS TABLET) 1 Each Tablet, 1 TAB PO BID for 10 Days, #20 TAB 0 Refills Prov:ML PÉREZ Jr. DO 08/24/19 Hydrocodone Bit/Acetaminophen (HYDROCODONE-APAP 5-325 ) 1 Each Tablet, 1 TAB PO PRN Q6HRS PRN for PAIN for 1 Day, #4 TAB 0 Refills Prov:BEN RODRIGUEZ [employer] 06/17/18 Hydrocodone/Apap 5-325 (NORCO 5-325 TABLET) 1 Each Tablet, 1 TAB PO BID for 3 Days, #6 TAB Prov:LAKSHMI ELLIOTT PA 03/30/18 Scheduled Amlodipine Besylate (Norvasc), 10 MG PO DAILY, (Reported) Carvedilol (Carvedilol ), 6.25 MG PO BIDWMEALS, (Reported) Discontinued Medications Acetaminophen With Codeine (Tylenol With Codeine #3 Tablet), 1 EACH PO, (Reported) Diclofenac Sodium (Diclofenac Sodium), 1 TAB PO BID PRN for PAIN Hydrocodone Bit/Acetaminophen (Hydrocodone-Apap 5-325 ), 1 TAB PO PRN Q6HRS PRN for PAIN Hydrocodone/Apap 5-325 ([place] 5-325 Tablet), 1 TAB PO BID Orphenadrine Citrate (Orphenadrine Citrate), 1 TAB PO BID PRN for MUSCLE SPASMS Sulfamethoxazole/Trimethoprim (Bactrim Ds Tablet), 1 TAB PO BID Total Time: Total Time: Total time spent was 35 minutes in preparing scripts, discharge planning with SWI and RN and preparing this discharge summary Justicifation of Admission Dx: Justifications for Admission: Justification of Admission Dx: N/A ZEN GREENE MD Apr 17, 2020 15:46
--- NOTE | 2020-04-17 17:56 | NUR ---
Discharge Note: [facility] [address] [place] [address] Discharge instructions and discharge home medications reviewed with Patient and a copy given. All questions have been answered and understanding verbalized. The following instructions and handouts were given: COVID-19, HTN Discontinued IV lines Patient discharged to home with home O2 via wheelchair
== END 2020-04-17 17:58 | disposition home or self-care (01) | DRG 871 ==
LOC: ER 16:00 → 6 SOUTH 19:30
PROVIDERS: ADMIT Internal Medicine; ATTEND Internal Medicine
DX: A41.89 Other specified sepsis (principal); U07.1 COVID-19; J96.01 Acute respiratory failure with hypoxia; J12.89 Other viral pneumonia; E87.1 Hypo-osmolality and hyponatremia; E03.9 Hypothyroidism, unspecified; E11.65 Type 2 diabetes mellitus with hyperglycemia; E66.9 Obesity, unspecified; Z68.38 Body mass index [BMI] 38.0-38.9, adult; E86.0 Dehydration; G31.84 Mild cognitive impairment of uncertain or unknown etiology; G89.4 Chronic pain syndrome; I10 Essential (primary) hypertension; M19.90 Unspecified osteoarthritis, unspecified site
CPT/HCPCS: 36415; 71045; 71275; 80048; 80053; 80061; 81001; 82550; 82728; 82962; 83036; 83605; 83615; 83690; 83735; 84100; 84145; 84484; 85025; 85379; 85384; 85610; 85730; 86140; 87040; 87077; 87086; 87186; 93005; 94618; 96360; 96361; 99285; J1650; J1815; J2920; J3490; J7030; Q9967; 92610-GN; G0378; U0003-CS